=== PATIENT | female | born 2000 | race Two or more races ===

== ENCOUNTER 2024-08-02 19:03 | Emergency (ER) | payer MEDICAID, OTHER ==
[~2024-08-02] VITALS: Ht 175.3 cm; Wt 103.0 kg
[2024-08-02] MEDS: HYDROmorphone HCL 2 MG/ML VL/or syr IM ONE (19:57)
[2024-08-02] MEDS: ONDANSETRON ODT 4 MG TAB PO ONE (19:57)
[2024-08-02] MEDS ORDERED: [UNRECOGNIZED DRUG - CODE] IJ (19:59)
[2024-08-02] MEDS ORDERED: OXY5T GT (19:59)
[2024-08-02] MEDS ORDERED: PROM25TA10 PO (19:59)
[2024-08-02] MEDS ORDERED: HYDR2TAB58 PO (19:59)
[2024-08-02] MEDS ORDERED: ZOFR4T PO (19:59)
--- NOTE | 2024-08-02 20:01 | ED.PDOC ---
History of Present Illness HPI Comments This patient is a pleasant but morbidly obese 23-year-old female who arrives to the ED today with a request of pain medication refill. Patient has a history of Le sarcoma and states that she just came down from [place] to go to [facility] in four days and did not bring her pain medication. Patient states she utilizes Dilaudid, oxycodone, Phenergan and Zofran. Patient denies any fever . Patient was hypertensive at arrival. 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 Pertinent GRADES 7 AND 8 TEACHER History Family History Family History: Reviewed,noncontributory to illness, No family hx of Cancer, No family hx of DM, No family hx of Heart tessy, No family hx of HTN, No family hx ofKidney tessy, No family hx of Liver tessy, No family hx of Lung tessy, No family hx of Stroke Social History Smoker: Non-Smoker Alcohol: Denies ETOH Use Drugs: Denies Drug Use Lives In: Home Constitutional: reports: others (Global pain concerns); denies: chills, diaphoresis, fatigue, fever, malaise, sweats, weakness EENTM: denies: blurred vision, double vision, ear bleeding, ear discharge, ear drainage, ear pain, ear ringing, eye pain, eye redness, hearing loss, mouth pain, mouth swelling, nasal discharge, nose bleeding, nose congestion, nose pain, photophobia, tearing, throat pain, throat swelling, voice changes, others Respiratory: denies: cough, hemoptysis, orthopnea, SOB at rest, shortness of breath, SOB with excertion, stridor, wheezing, others Cardiovascular: denies: chest pain, dizzy spells, diaphoresis, Dyspnea on exertion, edema, irregular heart beat, left arm pain, lightheadedness, palpitations, PND, syncope, others Gastrointestinal: denies: abdomen distended, abdominal pain, blood streaked bowels, constipated, diarrhea, dysphagia, difficulty swallowing, hematemesis, melena, nausea, poor appetite, poor fluid intake, rectal bleeding, rectal pain, vomiting, others Genitourinary: denies: abnormal vagina bleeding, burning, dyspareunia, dysuria, flank pain, frequency, hematuria, incontinence, pain, , vagina discharge, urgency, others Neurological: denies: dizziness, fainting, headache, left sided numbness, left sided weakness, numbness, paresthesia, pre-existing deficit, right sided numbness, right sided weakness, seizure, speech problems, tingling, tremors, weakness, others Musculoskeletal: reports: back pain, muscle pain; denies: gout, joint pain, joint swelling, muscle stiffness, neck pain, others Integumetry: denies: bruises, change in color, change in hair/nails, dryness, laceration, lesions, lumps, rash, wounds, others Allergic/Immunocompromised: denies: Difficulty Healing, Frequent Infections, Hives, Itching, others Hematologic/Lymphatic: denies: anemia, blood clots, easy bleeding, easy bruising, swollen glands, others Endocrine: denies: excessive hunger, excessive sweating, excessive thirst, excessive urination, flushing, intolerance to cold, intolerance to heat, unexplained weight gain, unexplained weight loss, others Psychiatric: denies: anxiety, bipolar disorder, depression, hopeless, panic disorder, schizophrenia, sleepless, suicidal, others Physical Exam General Appearance: Moderate Distress ([id number] distress due to global body pain concerns.), Obese HEENT: Normal ENT Inspection, Pharynx Normal, TMs Normal Neck: Full Range of Motion, Non-Tender, Normal, Normal Inspection Respiratory: Chest Non-Tender, Lungs Clear, No Accessory Muscle Use, No Respiratory Distress, Normal Breath Sounds Cardiovascular: No Edema, No JVD, No Murmur, No Gallop, Normal Peripheral Pu lses, Regular Rate/Rhythm Breast Exam: Deferred Gastrointestinal: Non Tender, No Pulsatile Mass, Soft Genitalia: Deferred Pelvic: Deferred Rectal: Deferred Extremities: Normal capillary refill, Normal inspection Neurologic: Alert, No Motor Deficits, No Sensory Deficits Cerebellar Function: Normal Reflexes: Normal Skin: Dry, Normal Color, Warm Lymphatic: No Adenopathy Was a procedure done? Was a procedure done?: No Differential Dx Considerations may include: Global pain due to Le sarcoma X-Ray, Labs, Meds, VS Vital Signs Date Time Temp Pulse Resp B/P (MAP) Pulse Ox O2 Delivery O2 Flow Rate FiO2 08/02/24 19:30 98.1 97 20 144/97 (113) 95 X-Ray, Labs, Meds, VS Comment Spent extensive time discussing the poor decision that the patient had to leave her state without her proper pain medication. I will provide her with four days of medication so that she could medicate up into her appointment. Time of 1ST Reevaluation: 19:54 Reevaluation 1ST: Improved Consultation: PCP, Other ([facility]) Patient Education/Counseling: Diagnosis, Treatment Family Education/Counseling: Diagnosis, Treatment Departure 1 Departure Time of Disposition: 19:54 Impression: Primary Impression: Le sarcoma Disposition: HOME / SELF CARE / HOMELESS Condition: Stable Additional Instructions: Advised patient maintain her appointment with [facility] for continued long- term management. e-Prescriptions Naloxone HCl (Naloxone HCl) 0.4 Mg/Ml Inj 0.4 MG IJ BIDP PRN, #2 INJ Prov: [facility] 08/02/24 Hydromorphone Hcl (Dilaudid) 2 Mg Tab 1 TAB PO QID, #20 TAB Prov: [facility] 08/02/24 Promethazine Hcl (Promethazine Hcl) 25 Mg Tab 1 TAB PO Q6HPRN, #16 TAB Prov: [facility] 08/02/24 Ondansetron Odt 4MG Tab (ZOFRAN PO) 4 Mg Tb 4 MG PO Q4HP PRN for 4 Days, #24 TAB ODT TAB-DISSOLVE IN MOUTH, THEN SWALLOW Prov: [facility] 08/02/24 Oxycodone Hcl (OXYCODONE HCL) 5 Mg Tb 5 MG GT Q4HP PRN for 4 Days, #24 TAB Prov: [facility] 08/02/24 Discharged With: Self, Friend Critical Care Note Critical Care Time?: No Stability Stability form required: No Heart Score Heart Score: Heart Score Response (Comments) Value History N/A 0 EKG N/A 0 Age N/A 0 Risk Factors N/A 0 Troponin N/A 0 Total 0 [facility] Aug 02, 2024 20:01
[2024-08-02 20:12] LABS: Urine Bacteria None Seen /hpf (None Seen)
[2024-08-02 20:18] VITALS: TEMP 98.1; O2SAT 98
[2024-08-02 20:27] VITALS: BP 125/89; PULSE 96; RESP 18
[2024-08-02 20:46] LABS: Urine Blood Negative /uL (Negative); Urine Clarity Clear (Clear); Urine Color Light-Yellow (Yellow); Urine Protein, UAD Negative (Negative); Urine Specific Gravity 1.032 (1.001-1.035); Urine Urobilinogen Normal (Negative); Urine WBC 1 /hpf (0 - 5)
== END 2024-08-02 20:30 | disposition home or self-care (01) ==
LOC: ER 19:03
DX: C41.9 Malignant neoplasm of bone and articular cartilage, unspecified (principal); I10 Essential (primary) hypertension; E66.01 Morbid (severe) obesity due to excess calories; Z68.33 Body mass index [BMI] 33.0-33.9, adult; Z76.0 Encounter for issue of repeat prescription
CPT/HCPCS: 81001; 96372; 99283; J1171; Q0162

== ENCOUNTER 2025-05-14 18:00 | Emergency (ER) | payer MEDICAID ==
[~2025-05-14] VITALS: Ht 175.3 cm; Wt 115.0 kg
[~2025-05-14 18:00] MED LIST: HYDR2TAB58 PO; OXY5T GT; PROM25TA10 PO; ZOFR4T PO; [UNRECOGNIZED DRUG - CODE] IJ
[2025-05-14 18:03] VITALS: TEMP 98.7
--- NOTE | 2025-05-14 19:11 | DVH ---
EXAMINATIONS: 3 views of the left hand CLINICAL HISTORY: left 1st finger pain COMPARISON: None Findings and impression: Somewhat limited evaluation on the lateral projection due to overlap of the digits. Question minimally displaced fracture involving the volar tuft of the 5th distal phalanx which may be projectional. This is best appreciated on the frontal projection. Please correlate with physical exa m. No other grossly displaced fractures or dislocations are evident on the provided views. If the patient has continued symptoms clinically suspicious for radiographically occult fracture, fol low-up radiographs could be obtained in 7-10 days time.
--- NOTE | 2025-05-14 20:23 | ED.PDOC ---
Musculoskeletal HPI Comments 24-year-old female presents to ER with complaints of left hand pain x1 day. Patient reports she started experiencing 8/10 left hand pain with associated swelling to left hand at 5:00 p.m. today s/p accidentally hitting her left hand against her water bottle. Patient also reports numbness and tingling to left hand and presents to ER in no distress. Denies left wrist pain or any further symptoms/complaints Chief Complaint: Upper Extremity Time Seen by MD: 18:18 Primary Care Provider: UNKNOWN Reviewed Notes: Nurses Notes, Medications Allergies: Coded Allergies: NO KNOWN ALLERGIES (Unverified , 08/02/24) Home Meds Active Scripts Naloxone HCl (Naloxone HCl) 0.4 Mg/Ml Inj, 0.4 MG IJ BIDP PRN, #2 INJ Prov:[facility] 08/02/24 Hydromorphone Hcl (Dilaudid) 2 Mg Tab, 1 TAB PO QID, #20 TAB Prov:[facility] 08/02/24 Promethazine Hcl (Promethazine Hcl) 25 Mg Tab, 1 TAB PO Q6HPRN, #16 TAB Prov:[facility] 08/02/24 Ondansetron Odt 4MG Tab (ZOFRAN PO) 4 Mg Tb, 4 MG PO Q4HP PRN for 4 Days, #24 TAB ODT TAB-DISSOLVE IN MOUTH, THEN SWALLOW Prov:[facility] 08/02/24 Oxycodone Hcl (OXYCODONE HCL) 5 Mg Tb, 5 MG GT Q4HP PRN for 4 Days, #24 TAB Prov:[facility] 08/02/24 Information Source: Patient Mode of Arrival: Ambulatory Past Medical History PAST MEDICAL HISTORY: Cancer (on chemotherapy) Past Medical History (Other): Left 5th finger fracture Surgical History: Denies all surgeries WATCH TECHNICIAN History: No Pertinent WATCH TECHNICIAN History Family History Family History: Unknown Social History Smoker: Non-Smoker Alcohol: Denies ETOH Use Drugs: Denies Drug Use Lives In: Home Constitutional: denies: chills, diaphoresis, fatigue, fever, malaise, sweats, weakness, others EENTM: denies: blurred vision, double vision, ear bleeding, ear discharge, ear drainage, ear pain, ear ringing, eye pain, eye redness, hearing loss, mouth pain, mouth swelling, nasal discharge, nose bleeding, nose congestion, nose pain, photophobia, tearing, throat pain, throat swelling, voice changes, others Respiratory: denies: cough, hemoptysis, orthopnea, SOB at rest, shortness of breath, SOB with excertion, stridor, wheezing, others Cardiovascular: denies: chest pain, dizzy spells, diaphoresis, Dyspnea on exertion, edema, irregular heart beat, left arm pain, lightheadedness, palpitations, PND, syncope, others Gastrointestinal: denies: abdomen distended, abdominal pain, blood streaked bowels, constipated, diarrhea, dysphagia, difficulty swallowing, hematemesis, melena, nausea, poor appetite, poor fluid intake, rectal bleeding, rectal pain, vomiting, others Genitourinary: denies: abnormal vagina bleeding, burning, dyspareunia, dysuria, flank pain, frequency, hematuria, incontinence, pain, , vagina discharge, urgency, others Neurological: denies: dizziness, fainting, headache, left sided numbness, left sided weakness, numbness, paresthesia, pre-existing deficit, right sided numbness, right sided weakness, seizure, speech problems, tingling, tremors, weakness, others Musculoskeletal: reports: others (As stated in HPI) Integumetry: reports: others (As stated in HPI) Allergic/Immunocompromised: denies: Difficulty Healing, Frequent Infections, Hives, Itching, others Hematologic/Lymphatic: denies: anemia, blood clots, easy bleeding, easy bruising, swollen glands, others Endocrine: denies: excessive hunger, excessive sweating, excessive thirst, excessive urination, flushing, intolerance to cold, intolerance to heat, unexplained weight gain, unexplained weight loss, others Psychiatric: denies: anxiety, bipolar disorder, depression, hopeless, panic disorder, schizophrenia, sleepless, suicidal, others Physical Exam General Appearance: No Apparent Distress, Obese HEENT: PERRL/EOMI Neck: Full Range of Motion, Non-Tender, Normal Respiratory: Chest Non-Tender, Lungs Clear, No Accessory Muscle Use, No Respiratory Distress, Normal Breath Sounds Cardiovascular: No Murmur, No Gallop, Regular Rate/Rhythm Breast Exam: Deferred Gastrointestinal: NOT DONE Genitalia: Deferred Pelvic: Deferred Rectal: Deferred Extremities: Normal capillary refill, Normal range of motion Neurologic: Alert, No Motor Deficits, Normal Affect, Normal Mood, No Sensory Deficits Cerebellar Function: Normal Reflexes: Normal Skin: Dry, Normal Color, Warm Peripheral Pulses: 2+ Radial (R), 2+ Radial (L), 2+ Brachial (R), 2+ Brachial (L) Lymphatic: No Adenopathy Was a procedure done? Was a procedure done?: No Sedation Sedation?: No Images 1 - TTP/mild swelling noted. No further skin changes noted. Patient able to fully move all fingers left hand. Pulses intact. No TTP to left anatomical snuffbox/TTP to left wrist noted. Differential Diagnosis EXT Differential Diagnosis: Fracture, Dislocation, Neurovascular injury X-Ray, Labs, Meds, VS Vital Signs Date Time Temp Pulse Resp B/P (MAP) Pulse Ox O2 Delivery O2 Flow Rate FiO2 05/14/25 18:03 98.7 103 18 140/71 96 98.7 PATIENT: AYANNA HOFFMANNACCT: [id number]: [id number] : 2000 LOC: ER ROOM / BED: / AGE / SEX: 24 / F ADM STATUS: REG ER SERVICE 183 ORDERING PHYSICIAN: SAAD RO PROCEDURE(s): LHAN - L HAND 3V XRAY REASON: left 1st finger pain ORDER NUMBER(s): [id number], ACCESSION NUMBER(s): [id number] EXAMINATIONS: 3 views of the left hand CLINICAL HISTORY: left 1st finger pain COMPARISON: None Findings and impression: Somewhat limited evaluation on the lateral projection due to overlap of the digits. Question minimally displaced fracture involving the volar tuft of the 5th distal phalanx which may be projectional. This is best appreciated on the frontal projection. Please correlate with physical exam. No other grossly displaced fractures or dislocations are evident on the provided views. If the patient has continued symptoms clinically suspicious for radiographically occult fracture, follow-up radiographs could be obtained in 7-10 days time. ATED BY: ESDRAS WSANSON MD DICTATED DATE/TIME: 05/14/251908 SIGNED BY: ESDRAS SWANSON MD SIGNED DATE/TIME: 05/14/251908 CC: waiver signed Left hand x-ray reviewed Patient neurovascularly intact Advised on elevation and alternate ice on/off as needed for pain/swelling Advised on re-x-ray of left hand in one week if symptoms do not improve Advised to follow up with PCP in 1-2 days Patient verbalized understanding and agreeable with current plan of care Advised to return to ER immediately if symptoms worsen Images Reviewed?: Images reviewed and evaluated by me Time of 1ST Reevaluation: 20:02 Reevaluation 1ST: N/A Patient Education/Counseling: Diagnosis, Treatment, Prognosis, Need For Follow Up Family Education/Counseling: No Family Present Departure 1 Departure Time of Disposition: 20:22 Impression: Primary Impression: Contusion of left hand Qualified Codes: S60.222A - Contusion of left hand, initial encounter Disposition: HOME / SELF CARE / HOMELESS Condition: Stable Discharged With: Friend Critical Care Note Critical Care Time?: No Stability Stability form required: No Heart Score Heart Score: Heart Score Response (Comments) Value History N/A 0 EKG N/A 0 Age N/A 0 Risk Factors N/A 0 Troponin N/A 0 Total 0 SAAD RO May 14, 2025 20:23
[2025-05-14 20:25] VITALS: BP 123/84; PULSE 102; RESP 16; O2SAT 100
== END 2025-05-14 20:37 | disposition home or self-care (01) ==
LOC: ER 18:00
DX: S60.222A Contusion of left hand, initial encounter (principal); Z98.890 Other specified postprocedural states; W22.8XXA Striking against or struck by other objects, initial encounter; Y93.89 Activity, other specified; Y92.89 Other specified places as the place of occurrence of the external cause; Y99.8 Other external cause status
CPT/HCPCS: 73130

== ENCOUNTER 2025-06-16 11:57 | Emergency (ER) | payer MEDICAID ==
[~2025-06-16] VITALS: Ht 175.3 cm; Wt 113.6 kg
[2025-06-16 11:58] VITALS: BP 124/79; PULSE 94; RESP 23; TEMP 98; O2SAT 97
--- NOTE | 2025-06-16 12:51 | ED.PDOC ---
GI ASSESSMENT HPI Comments 24 year old female PMHx bone marrow cancer presents to the ED with a chief complaint of abdominal pain onset 2 days. 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 She is also experiencing nausea, vomiting. She is currently being treated at [facility], has radiation. Denies fever, chills, hematemesis, dizziness, headache, dysuria, hematuria. No other symptoms or modifying factors present at this time. Chief Complaint: Abdominal Pain Time Seen by MD: 12:40 Primary Care Provider: UNKNOWN Reviewed Notes: Medications, Allergies Allergies: Coded Allergies: NO KNOWN ALLERGIES (Unverified , 08/02/24) Home Meds Active Scripts Naloxone HCl (Naloxone HCl) 0.4 Mg/Ml Inj, 0.4 MG IJ BIDP PRN, #2 INJ Prov:WERNER BAZAN [facility] 08/02/24 Hydromorphone Hcl (Dilaudid) 2 Mg Tab, 1 TAB PO QID, #20 TAB Prov:WERNER BAZAN [facility] 08/02/24 Promethazine Hcl (Promethazine Hcl) 25 Mg Tab, 1 TAB PO Q6HPRN, #16 TAB Prov:WERNER BAZAN [facility] 08/02/24 Ondansetron Odt 4MG Tab (ZOFRAN PO) 4 Mg Tb, 4 MG PO Q4HP PRN for 4 Days, #24 TAB ODT TAB-DISSOLVE IN MOUTH, THEN SWALLOW Prov:WERNER BAZAN [facility] 08/02/24 Oxycodone Hcl (OXYCODONE HCL) 5 Mg Tb, 5 MG GT Q4HP PRN for 4 Days, #24 TAB Prov:WERNER BAZAN [facility] 08/02/24 Information Source: Patient Mode of Arrival: Ambulatory Timing: Days Duration: Since onset Prehospital treatment: None Quality: Aching, Sharp Severity: Moderate Recent: None Recent Hx of: None Pain Location: Diffuse Modifying Factors: Nothing Associated sign and symptoms: Nausea, Vomiting, Abdominal Pain Past Medical History PAST MEDICAL HISTORY: Cancer Surgical History: Denies all surgeries TIPPLE BOSS History: No Pertinent TIPPLE BOSS History Family History Family History: Unknown Social History Smoker: Non-Smoker Alcohol: Denies ETOH Use Drugs: Denies Drug Use Lives In: Home Constitutional: denies: chills, diaphoresis, fatigue, fever, malaise, sweats, weakness, others EENTM: denies: blurred vision, double vision, ear bleeding, ear discharge, ear drainage, ear pain, ear ringing, eye pain, eye redness, hearing loss, mouth pain, mouth swelling, nasal discharge, nose bleeding, nose congestion, nose pain, photophobia, tearing, throat pain, throat swelling, voice changes, others Respiratory: denies: cough, hemoptysis, orthopnea, SOB at rest, shortness of breath, SOB with excertion, stridor, wheezing, others Cardiovascular: denies: chest pain, dizzy spells, diaphoresis, Dyspnea on exertion, edema, irregular heart beat, left arm pain, lightheadedness, palpitations, PND, syncope, others Gastrointestinal: reports: abdominal pain, nausea, vomiting; denies: abdomen distended, blood streaked bowels, constipated, diarrhea, dysphagia, difficulty swallowing, hematemesis, melena, poor appetite, poor fluid intake, rectal bleeding, rectal pain, others Genitourinary: denies: abnormal vagina bleeding, burning, dyspareunia, dysuria, flank pain, frequency, hematuria, incontinence, pain, , vagina discharge, urgency, others Neurological: denies: dizziness, fainting, headache, left sided numbness, left sided weakness, numbness, paresthesia, pre-existing deficit, right sided numbness, right sided weakness, seizure, speech problems, tingling, tremors, weakness, others Musculoskeletal: denies: back pain, gout, joint pain, joint swelling, muscle pain, muscle stiffness, neck pain, others Integumetry: denies: bruises, change in color, change in hair/nails, dryness, laceration, lesions, lumps, rash, wounds, others Allergic/Immunocompromised: denies: Difficulty Healing, Frequent Infections, Hives, Itching, others Hematologic/Lymphatic: denies: anemia, blood clots, easy bleeding, easy bruising, swollen glands, others Endocrine: denies: excessive hunger, excessive sweating, excessive thirst, excessive urination, flushing, intolerance to cold, intolerance to heat, unexplained weight gain, unexplained weight loss, others Psychiatric: denies: anxiety, bipolar disorder, depression, hopeless, panic disorder, schizophrenia, sleepless, suicidal, others All Other Systems: Reviewed and Negative Physical Exam General Appearance: Moderate Distress, Normal HEENT: Normal ENT Inspection, Pharynx Normal, TMs Normal Neck: Full Range of Motion, Non-Tender, Normal, Normal Inspection Respiratory: Chest Non-Tender, Lungs Clear, No Accessory Muscle Use, No Respiratory Distress, Normal Breath Sounds Cardiovascular: No Edema, No JVD, No Murmur, No Gallop, Normal Peripheral Pulses, Regular Rate/Rhythm Breast Exam: Deferred Gastrointestinal: No Organomegaly, No Pulsatile Mass, Normal Bowel Sounds, Soft Genitalia: Deferred Pelvic: Deferred Rectal: Deferred Extremities: No calf tenderness, Normal capillary refill, Normal inspection, Normal range of motion, Non-tender, No pedal edema Musculoskeletal : Apperance: Normal Neurologic: Alert, stain wiper II-XII nml as Tested, No Motor Deficits, Normal Affect, Normal Mood, No Sensory Deficits Cerebellar Function: NOT DONE Reflexes: NOT DONE Skin: Dry, Normal Color, Warm Peripheral Pulses: 3+ Radial (R), 3+ Radial (L) Lymphatic: No Adenopathy Was a procedure done? Was a procedure done?: No GI differential Dx Differential Diagnosis: Constipation, Diverticular disease, Esophagitis, Gastritis/PUD, Gastroenteritis X-Ray, Labs, Meds, VS Vital Signs Date Time Temp Pulse Resp B/P (MAP) Pulse Ox O2 Delivery O2 Flow Rate FiO2 06/16/25 11:58 98.0 94 23 124/79 97 98.0 Lab Test 06/16/25 13:18 06/16/25 12:55 Range/Units White Blood Count 10.5 4.4-10.8 10^3/uL Red Blood Count 4.76 4.0-5.20 10^6/uL Hemoglobin 13.5 12.2-16.2 g/dL Hematocrit 39.4 36.0-46.0 % Mean Corpuscular Volume 82.8 80.0-100.0 fL Mean Corpuscular Hemoglobin 28.4 28.0-32.0 pg Mean Corpuscular Hemoglobin Concent 34.3 32.0-36.0 g/dL Red Cell Distribution Width 13.9 11.8-14.3 % Platelet Count 274 140-450 10^3/uL Mean Platelet Volume 7.3 6.9-10.8 fL Neutrophils (%) (Auto) 84.9 H 37.0-80.0 % Lymphocytes (%) (Auto) 7.8 L 10.0-50.0 % Monocytes (%) (Auto) 5.8 0.0-12.0 % Eosinophils (%) (Auto) 1.1 0.0-7.0 % Basophils (%) (Auto) 0.4 0.0-2.0 % Neutrophils # (Auto) 8.9 H 1.6-8.6 10 ^3/uL Lymphocytes # (Auto) 0.8 0.4-5.4 10 ^3/uL Monocytes # (Auto) 0.6 0-1.3 10 ^3/uL Eosinophils # (Auto) 0.1 0-0.8 10 ^3/uL Basophils # (Auto) 0 0-0.2 10 ^3/uL Nucleated Red Blood Cells 0.0 % Sodium Level 139 136-145 mmol/L Potassium Level 3.7 3.5-5.1 mmol/L Chloride Level 107 98-107 mmol/L Carbon Dioxide Level 22 20-31 mmol/L Anion Gap 10 5-15 Blood Urea Nitrogen < 5 L 9-23 mg/dL Creatinine 0.59 0.550-1.02 mg/dL Glomerular Filtration Rate Calc 130 >90 mL/min BUN/Creatinine Ratio 8.5 L 10.0-20.0 Serum Glucose 136 H 74-106 mg/dL Calcium Level 9.3 8.7-10.4 mg/dL Total Bilirubin 0.5 0.2-1.0 mg/dL Aspartate Amino Transferase (AST) 16 13-40 U/L Alanine Aminotransferase (ALT) 16 7-40 U/L Alkaline Phosphatase 168 H 46-116 U/L Total Protein 7.4 5.7-8.2 g/dL Albumin 4.7 3.2-4.8 g/dL Urine Color Yellow Yellow Urine Clarity Clear Clear Urine pH 6.0 5.0-9.0 Urine Specific [place] 1.027 1.001-1.035 Urine Protein Trace H Negative Urine Ketones Negative Negative Urine Blood Trace H Negative /uL Urine Nitrite Negative Negative Urine Bilirubin Negative Negative Urine Urobilinogen Normal Negative mg/dL Urine Leukocyte Esterase Negative Negative /uL Urine RBC 2 0 - 4 /hpf Urine Microscopic WBC 1 0-5 /HPF Urine Squamous Epithelial Cells Few <5 /hpf Urine Bacteria None seen None Seen /hpf Urine Glucose Trace Normal mg/dL Patient alert. Complaining of abdominal pain. History of bone cancer. Vitals stable. Continues to have abdominal pain. She is currently on radiation therapy. Blood sugar slightly elevated. Explained to the patient. Continue monitoring. [address] [address] Ph: [phone] DIAGNOSTIC IMAGING Diagnostic Imaging Report : [id number] Signed PATIENT: AYANNA HOFFMANN ACCT: [id number] UNIT: [id number] : 2000 LOC: ER ROOM / BED: / AGE / SEX: 24 / F ADM STATUS: REG ER SERVICE 1300 ORDERING PHYSICIAN: VANESSA RYAN MD PROCEDURE(s): ABPL - CT AB PEL WO CON-NO ORAL OR IV REASON: colitis ORDER NUMBER(s): [id number], ACCESSION NUMBER(s): [id number] Exam: CT CT AB PEL WO CON-NO ORAL OR IV History: colitis Comparison Study: 02/04/2025 report only, CT chest abdomen and pelvis 12/23/2024 report only, PET-CT 12/23/2024 report only TECHNIQUE: Multidetector CT of the abdomen AND PELVIS without IV contrast. Axial, coronal and sagittal multiplanar reformats were obtained from the axial data set by the technologist. Radiation Dose Information: CT Dose: CTDI volume is 25.06 mGy. Dose-length product is 3.92 mGy*cm FINDINGS: 3.3 x 4.6 x 2.9 cm partially calcified left posterior medial pleural-based mass with adjacent pleural thickening . partially visualized heart is unremarkable. Mild hepatomegaly with focus of left hepatic lobe Calcification. Otherwise, liver, spleen, gallbladder, and adrenal glands unremarkable. Pancreatic tail appears to be absent. Partially calcified pancreatic head mass measuring up to 6.4 x 4.6 x 4.9 cm. There is incompletely assessed distal pancreatic body cystic lesion measuring up to 1.7 by 1.4 cm. No [place] nephrosis or renal calculi bilaterally. Bilateral ureters are unr emarkable. Limited evaluation of the urinary bladder due to decompressed state. Uterus is unremarkable. 4.2 cm right ovarian cyst. Stomach is unremarkable. Small bowel loops unremarkable. Appendix is unremarkable. Large bowel is unremarkable. No evidence of intraperitoneal free air or free fluid. No evidence of aortic aneurysm. No significant lymphadenopathy. Soft tissues are unremarkable. Umbilical region skin thickening. No evidence of acute osseous abnormalities. IMPRESSION: No evidence of acute abdominopelvic abnormalities. 4.2 cm right ovarian cyst. Mild hepatomegaly. Pancreatic head Partially Calcified mass with additional pancreatic cystic lesion as detailed above. No prior images available for direct comparison. Left posterior medial lung base calcified lesion as detailed above with no prior imaging available for direct comparison. ATED BY: TATY HINKLE DO DICTATED DATE/TIME: 06/16/25 134 SIGNED BY: TATY HINKLE DO SIGNED DATE/TIME: 06/16/25 134 CC: Time of 1ST Reevaluation: 13:10 Reevaluation 1ST: Unchanged Patient Education/Counseling: Diagnosis, Treatment, Prognosis Family Education/Counseling: No Family Present SEPSIS Sepsis Screen Date sepsis recognized/suspect: Jun 16, 2025 Time Sepsis recognized/suspect: 1158 Recent Procedure: No On Antibiotic Therapy: No Respiratory Rate >20: Yes Heart Rate >90: Yes Temp<36 C (96.8 F) or >38.3 C: No SBP <90 or MAP <65 mmHG: No New Acute Mental Status Change: No Is the patient on CPAP, BIPAP,: No Physician Orders Ct Ab Pel Wo Con-No Oral Or Iv (06/16/25 13:00) Vital Signs Date Time Temp Pulse Resp B/P (MAP) Pulse Ox O2 Delivery O2 Flow Rate FiO2 06/16/25 11:58 98.0 94 23 124/79 97 98.0 Laboratory Tests Test 06/16/25 13:18 White Blood Count 10.5 10^3/uL (4.4-10.8) Departure 1 Departure Time of Disposition: 13:50 Impression: Primary Impression: Acute abdominal pain Additional Impression: Hyperglycemia Disposition: ADMITTED INPATIENT Admit to: Med Surg Condition: Guarded Critical Care Note Critical Care Time?: No Stability Stability form required: No Heart Score Heart Score: Heart Score Response (Comments) Value History N/A 0 EKG N/A 0 Age N/A 0 Risk Factors N/A 0 Troponin N/A 0 Total 0 I personally scribed for VANESSA RYAN MD ([email or web address]) on 06/16/25 at 12:51. Electronically submitted by Lucy Reyes ([email or web address]). I personally scribed for VANESSA RYAN MD ([email or web address]) on 06/16/25 at 13:53. Electronically submitted by Lucy Reyes ([email or web address]). VANESSA RYAN MD Jun 16, 2025 12:51
[2025-06-16 13:12] LABS: Urine Protein, UAD TRACE (Negative)
[2025-06-16 13:27] LABS: Hematocrit 39.4 % (36.0-46.0); Hemoglobin 13.5 g/dL (12.2-16.2); Mean Corpuscular Hemoglobin 28.4 pg (28.0-32.0); Mean Corpuscular Volume 82.8 fL (80.0-100.0); Nucleated Red Blood Cells % 0.0 %
[2025-06-16 13:43] LABS: Alanine Aminotransferase 16 U/L (7-40); Albumin 4.7 g/dL (3.2-4.8); Anion Gap 10 (5-15); Bilirubin, Total 0.5 mg/dL (0.2-1.0); Calcium 9.3 mg/dL (8.7-10.4); Carbon Dioxide 22 mmol/L (20-31); Chloride 107 mmol/L (98-107); Potassium 3.7 mmol/L (3.5-5.1); Sodium 139 mmol/L (136-145); Total Protein 7.4 g/dL (5.7-8.2)
[2025-06-16 13:44] LABS: Alkaline Phosphatase 168 U/L (46-116); BUN/Creatinine Ratio 8.5 (10.0-20.0); Blood Urea Nitrogen < 5 mg/dL (9-23); Glucose 136 mg/dL (74-106)
--- NOTE | 2025-06-16 13:44 | DVH ---
Exam: CT CT AB PEL WO CON-NO ORAL OR IV History: colitis Comparison Study: 02/04/2025 report only, CT chest abdomen and pelvis 12/23/2024 report only, PET-CT 12/23/2024 report only TECHNIQUE: Multidetector CT of the abdomen AND PELVIS without IV contrast. Axial, coronal and sagitta l multiplanar reformats were obtained from the axial data set by the technologist. Radiation Dose Information: CT Dose: CTDI volume is 25.06 mGy. Dose-length product is 3.92 mGy*cm FINDINGS: 3.3 x 4.6 x 2.9 cm partially calcified left posterior medial pleural-based mass with adjacent pleural thickening . partially visualized heart is unremarkable. Mild hepatomegaly with focus of left hepatic lobe Calcification. Otherwise, liver, spleen, gallbladd er, and adrenal glands unremarkable. Pancreatic tail appears to be absent. Partially calcified pancre atic head mass measuring up to 6.4 x 4.6 x 4.9 cm. There is incompletely assessed distal pancreatic b char cystic lesion measuring up to 1.7 by 1.4 cm. No [place] nephrosis or renal calculi bilaterally. Bilateral ureters are unremarkable. Limited evaluat ion of the urinary bladder due to decompressed state. Uterus is unremarkable. 4.2 cm right ovarian [address]. Stomach is unremarkable. Small bowel loops unremarkable. Appendix is unremarkable. Large bowel is unr emarkable. No evidence of intraperitoneal free air or free fluid. No evidence of aortic aneurysm. No significant lymphadenopathy. Soft tissues are unremarkable. Umbilical region skin thickening. No evidence of acute osseous abnorma lities. IMPRESSION: No evidence of acute abdominopelvic abnormalities. 4.2 cm right ovarian cyst. Mild hepatomegaly. Pancreatic head Partially Calcified mass with additional pancreatic cystic lesion as detailed above. No prior images available for direct comparison. Left posterior medial lung base calcified lesion as detailed above with no prior imaging available fo r direct comparison.
[2025-06-16] MEDS: HYDROcodone-ACET 10/325MG TAB PO ONE (15:05)
== END 2025-06-16 15:15 | disposition left against medical advice (07) ==
LOC: ER 11:57
DX: R10.13 Epigastric pain (principal); R73.9 Hyperglycemia, unspecified; C79.51 Secondary malignant neoplasm of bone; C25.9 Malignant neoplasm of pancreas, unspecified; Z51.0 Encounter for antineoplastic radiation therapy
CPT/HCPCS: 36415; 74176; 80053; 81001; 83690; 85025